=== PATIENT | female | born 1955 | race Caucasian/White ===

== ENCOUNTER → 2016-12-19 | Outpatient (CLI) | payer OTHER ==
[~2016-12-19] MED LIST: ATV5 PO; CHOL1000 PO; FSMD/70 PO; METO25TA3 PO; PANT40TA PO; TYLOTC500 PO; [UNRECOGNIZED DRUG - OTHER] PO
[2016-12-19 09:00] VITALS: BP 135/75; PULSE 69; TEMP 36.6; O2SAT 99
--- NOTE | 2016-12-19 10:11 | Radiation Oncology Follow-Up ---
Radiation Oncology Follow-Up Date of Visit Dec 19, 2016. Reason For Visit One-month follow-up and cancer survivorship care plan Radiation Completion Date finished 10-31-2016 Diagnosis (1) Breast cancer Status: Resolved Onset Date: 06/18/2016 Histology Subtype: ductal Stage: l (A) Permanent Comment: Status post retropectoral silicone implants Self detected right breast mass Status post fine-needle aspiration 06/18/2016 Invasive carcinoma, NST grade 2 Estrogen receptor positive, progesterone receptor positive, HER-2/loan negative Prosigna score of 54 Mammaprint score of 0.016 Status post right needle localization lumpectomy and sentinel lymph node biopsy 07/23/2016 Invasive ductal carcinoma, grade 3 Stage pT1c pN0 M0 Status post completion of radiation therapy 10/31/2016. She received 6640 cGy Last Edited By: Ysabel Martinez on Nov 11, 2016 18:58 History of Present Illness Ms. Bellamy is a 61-year-old female with a history of bilateral breast augmentation with silicone implants who recently presented with a history of a palpable right breast mass which was initially felt to be benign but has gotten larger over the last several years. She underwent bilateral diagnostic mammograms on 06/13/2016 which revealed new circumscribed 8 mm nodule with new coarse calcifications in the right breast in the 10 o'clock position; targeted ultrasound confirmed a parallel, oval, circumscribed isoechoic 9 mm nodule. There is no evidence of any axillary adenopathy. She underwent a ultrasound- guided biopsy of the right breast mass on 06/18/2016 which revealed grade 2 invasive ductal carcinoma with extensive ductal carcinoma in situ; the tumor was estrogen receptor positive, progesterone receptor positive and HER-2 negative. She was subsequently referred to Dr. Itzel Oshea who discuss treatment options. The patient underwent a bilateral breast MRI on 07/21/2016 which confirmed previous findings including a right breast mass that measured 12 mm in the greatest dimension but no other evidence of suspicious malignancy. The patient underwent a right breast lumpectomy and sentinel lymph node biopsy on 2016. Pathology revealed invasive ductal carcinoma that was grade 3 which measured 1.2 cm in the greatest dimension with a component of ductal carcinoma in situ that measured 1.6 cm in the greatest dimension. There is no evidence of lymphovascular space invasion. Margins were negative for invasive ductal carcinoma and the closest margin was 1.5 mm; margins were also negative for ductal carcinoma in situ and the closest margin was 0.7 mm. Two sentinel lymph nodes were excised and both were negative for metastatic carcinoma. The patient did undergo multiple genetic studies of her breast tumor including Prosigna (score 54) and Mammaprint ("Low Risk"). Dr. Shahid Smith for medical oncology did see and evaluate the patient as well and did discuss anti-hormonal therapy as well as potential systemic therapy. At the time of the consultation , Dr. Smith did not have access to the Mammaprint results. We are now seeing the patient in consultation discuss the role of adjuvant radiation therapy. The patient did not require chemotherapy. She will return to our office and underwent a CT simulation. She completed radiation therapy on 10/31/2016. She received 6640 cGy. Interim History She's been doing well over this past month. Skin irritation that she had has steadily improved. There is some mild dark discoloration of the skin. She denies tenderness. She's noted no masses of the right breast and no change in the axilla. She's had no swelling of her arm. She is going to be having a mammogram of the right breast today as well as a possible ultrasound. She stated that she noted a firm area of the upper outer portion of the left breast over the past few weeks. There is associated tenderness. She's noticed no redness. She recalls no straining type injury. Allergies Coded Allergies: Cat Dander (Verified Allergy, Unknown, UNKNOWN, 08/05/11) Penicillins (Verified Allergy, Unknown, RASH, 07/09/11) Sulfa Drugs (Verified Allergy, Unknown, UNKNOWN, 08/05/11) Home Medications Scheduled Acetaminophen (Tylenol), 1,000 MG PO PRN Alendronate/Cholecalciferol (Fosamax+D 70MG/2800 Iu), 1 TABLET PO WK Cholecalciferol (Vitamin D3), 1 TAB PO BID Lorazepam (Ativan *), 0.5 MG PO Q6HR PRN Pantoprazole (Protonix), 40 MG PO DAILY [Shaklee Strip ], 1 PKT PO DAILY Scheduled PRN Metoprolol Succ (Toprol Xl) (Toprol-Xl), 25 MG PO PRN PRN for Documentation Review of Systems Gastrointestinal: Symptoms: WNL Oral: Symptoms: No Problems Respiratory: Symptoms: WNL Urinary: Symptoms: WNL Skin: Symptoms: No Problems Breast: Right Upper Arm Measurement: 27.5 Right Mid Arm Measurement: 23.5 Right Wrist Measurement: 15.3 Left Upper Arm Measurement: 26.5 Left Mid Arm Measurement: 21.5 Left Wrist Measurement: 15.4 Arm Dominence: Right Patient Cosmetic Evaluation: Good Staff Cosmetic Evalaluation: Good Additional Notes: She completed a distress management report and answered "no" to all questions. Physical Exam Vital Signs Date Time Temp Pulse Resp B/P (MAP) Pulse Ox O2 Delivery O2 Flow Rate FiO2 12/19/16 09:00 36.6 69 16 135/75 99 Pain: Side: Bilateral Patient Pain Scale: 0 - 10 Initial Pain Intensity: 0.0 Fatigue: None General Appearance: no apparent distress Eyes: normal inspection, EOMI ENT: normal ENT inspection, hearing grossly normal Neck: no adenopathy, thyroid normal Respiratory/Chest: lungs clear, no respiratory distress, no accessory muscle use Breast: Breast examination reveals bilateral subpectoral implants. On the right there is resolving hyperpigmentation. This is in the upper outer quadrant. There are no masses or tenderness and no axillary adenopathy. She has no skin retractions or nipple changes. Using the Humble score cosmesis she has a good outcome. The left breast revealed mild tenderness in the upper outer quadrant. This runs along the pectoralis minor muscle. Palpation in this area causes mild discomfort which extends towards the shoulder. There are no masses and no axillary adenopathy. Cardiovascular: regular rate, rhythm, no gallop, no murmur Neurologic/Psychiatric: no motor/sensory deficits, alert, normal mood/affect Skin: warm/dry Assessment & Plan Plan: The patient was also seen today by Dr. Smith. We reviewed with her that the changes she has noted in the left breast is likely musculoskeletal in origin. She'll continue regular follow-up with medical oncology. She does have an upcoming appointment. Anti-hormonal therapy had previously been discussed. She will be seeing Dr. Oshea on January 01. She can review this further with her. She will be having a mammogram today of the right breast and possible ultrasound. Today we completed a cancer survivorship care plan. A copy of the document was given to the patient. We asked her to return to our office in 6 months. She may call if she has any questions or concerns in the interim. ADDENDUM: I agree with note created by Ysabel Martinez PA-C. I reviewed the patient's chart and information with her. I have examined and evaluated the patient. I reviewed relevant clinical information and answered the patient's and /or family's questions. [employer] Total Time In Follow-Up I spent 20 minutes speaking to the patient and performing examination. I spent 20 minutes reviewing information,preparing the survivorship document, and completing this note. AK I spent 15 minutes examining and counseling the patient. [employer] Copy To Itzel Oshea MD; Avelino Sullivan M.D.; Shahid Smith M.D. Problem Qualifiers (1) Breast cancer: Breast location: upper outer quadrant of breast Estrogen receptor status: positive Patient sex: female Laterality: right Qualified Codes: C50.411 - Malignant neoplasm of upper-outer quadrant of right female breast; Z17.0 - Estrogen receptor positive status [ER+]
== END | disposition home or self-care (01) ==
LOC: C.ONC 08:52
PROVIDERS: ATTEND Physician Assistant Medical
DX: Z08 Encounter for follow-up examination after completed treatment for malignant neoplasm (principal); Z92.3 Personal history of irradiation; Z85.3 Personal history of malignant neoplasm of breast